=== PATIENT | male | born 1965 | race Caucasian/White ===

== ENCOUNTER 2023-11-23 14:51 | Outpatient (AMB) | payer OTHER, SELFPAY ==
--- NOTE | 2023-11-23 15:05 | MHC.OFFVIS ---
Vital Signs 11/23/23 15:07 Height 5 ft 5 in Weight 189 lb 4 oz BMI 31.5 BP 122/70 Blood Pressure Location Lt brachial Position Sitting Pulse 52 Pulse Source Pulse Oximeter Pulse Oximetry (%) 97 Oxygen Delivery Method Room Air Intake Visit Reasons: ENP-Bilateral arm tremors-CONF Intake Note: Patient presents for bilateral arm tremors. Was taking Bupropion 450mg for five years and doses went down couple a weeks ago to 300 mg and since tremors has gotten better. Having more short term memory loss. Allergies lisinopril Allergy (Severe, Verified 11/23/23 15:31) Difficulty Breathing Medication List - Last Reconciled 11/23/23 by Niharika Fierro, TRAVIS amlodipine 10 mg PO DAILY bupropion HCl XL 300 mg PO QAM hydroxyzine HCl 25 mg PO DAILY lamotrigine 200 mg PO BID losartan 50 mg PO DAILY HPI Comments Details: Right-handed 58-yr-old male presents for new pt evaluation of movement disorder, specifically: tremor. Pt is also concerned about memory issues. PMH includes HTN, depression, sleep difficulties. Pt reports he started having BUE action tremor about 3 yrs ago, which have been gradually increasing. However, the tremor and sleep difficulties are less bothersome since he recently reduced his Bupropion XL from 450mg to 300mg and also switched from q5pm to qam- 2 weeks ago. He states he had started taking the Buporopion at night as he was forgetting his dose in the am and then taking double doses- which resulted him needing ER evaluation- so his switched the Bupropion to q evening. ADL status: Ind IADL status: Overall Ind. does help w/ meds. Fine-motor skills: No issues Micrographia: writing is not as good Vision changes: some blurry vision Hypophonia: Denies Hyposmia: Denies Dysphagia: Denies Drooling: Denies Orthostatic lightheadedness: Can feel spacey at times- even when sitting, more when standing up. States he etas/drinks ok- may need to drink more water. BP is usually higher, but normotensive today. GI: Denies : some urinary frequency- improved after stopping a diuretic Slowness: Denies Freezing episodes: Denies Tremor: BUE action tremor, more so in the right hand. Involuntary movements: He may twitch- pt's states his tells him he twitches at night Dyskinesia: Denies Stiffness: Back and knees can feel stiff. Paresthesias: Denies Gait changes: Very occasionally can feel off-balance if he feels spacey. Sleep difficulty: Sleeps ok w/ hydroxyzine. States had a sleep study before- was told sleep apnea, but did not tolerate CPAP. Parasomnias: May kick in his sleep- not sure if r/t a dream. Memory impairment: Has been having STM difficulties x's a year or maybe more. LTM is good. Can have dififuclty concentrating. Mood: Can be bothered by things. States that he had been depressed for a long time- but was not responsive to tx, even TMS and ECT. Then had psychiatric admission, and finally dx'd w/ Bipolar type I (very hyper or very down)- and was started on bupropion and lamotrigine). Hallucinations: In the past, when working nights, could see something in the road as he was dozing off. Usual exercise: Not much in the winter- works a 9 hr [employer] commute. Musculoskeletal- Has neck tightness/soreness, non-radiating pain, some crepitus on movement. In the past when worse, had vertigo- did PT which helped. History of concussion/head injury? None History of neuroleptic (metoclopramide/antipsychotics) use? Has taken many psychiatric meds- tried all of them . History of psychiatric hospitalizations? Aprpox 5-6 yrs ago. History of occupational chemical exposures? 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 Family history of movement disorders? His sister has tremor for many yrs. Family history of mood disorder or suicide? His dtr has ADD/ADHD. [facility] Medical History (Updated 11/23/23 @ 16:29 by TRAVIS Pettit) Anemia Surgical History (Updated 11/23/23 @ 15:21 by Talya Sadler CMA) History of tonsillectomy H/O vasectomy Family History (Updated 11/23/23 @ 15:25 by Talya Sadler CMA) Father Stroke Mother Stroke Daughter Mood disorder Social History (Updated 11/23/23 @ 15:24 by Talya Sadler CMA) Household Members: Spouse Housing: House Alcohol intake: current Comment: Ocassionally Patient Tobacco Use Status: Never used Tobacco Review of Systems Const All systems reviewed & are unremarkable except as noted in HPI and below Physical Exam Vital Signs: Last Vital Signs Pulse 52 11/23/23 15:07 BP 122/70 11/23/23 15:07 Pulse Ox 97 11/23/23 15:07 Oxygen Delivery Method Room Air 11/23/23 15:07 BMI result Body Mass Index 31.5 Const General: cooperative and no acute distress Resp Effort & Inspection: normal respiratory effort and able to speak in complete sentences Cardio Rate: regular rate Rhythm: regular rhythm Back/Spine/Pelvis Other: Bilateral posterior cervical tightness. Cervical ROM: limited Left Spurling: normal Right Spurling: normal. Neuro Other: General: A&O x's 3 Expression: Intact Voice: Intact Tremor: BUE postural tremor. Shimon eyelids flutter when eyes closed. Wititing is shaky but legible. Finger-Nose- Intact w/ BUE R > L kinetic tremor. Tone: BUE, R > L Dyskinesia: None FFM: Ok Foot taps: Ok Gait: Stands easily, steady gait. Psych: Pleasant affect Deep tendon reflexes (DTR's): Right triceps reflex intensity grade: 2+, Left triceps reflex intensity grade: 2+, Rt Biceps (C5, C6): 2+, Left biceps reflex intensity grade: 2+, Right brachioradialis reflex intensity grade: 2+, Left brachioradialis reflex intensity grade: 2+, Right patellar reflex intensity grade: 3+ and Left patellar reflex intensity grade: 3+ (w/ left 3rd finger extension) Psych Mental Status: mental status grossly normal Speech and movement: Normal speech and movement present Affect: normal affect Attitude: cooperative Thought process: Normal thought process present Assessment & Plan Assessment & Plan (1) Tremor: Code(s): R25.1 - Tremor, unspecified Category: Medical (2) Snoring: Code(s): R06.83 - Snoring Category: Medical (3) Sleep apnea: Code(s): G47.30 - Sleep apnea, unspecified Category: Medical (4) Sleep difficulties: Code(s): G47.9 - Sleep disorder, unspecified Category: Medical (5) Cervicalgia: Code(s): M54.2 - Cervicalgia Category: Medical (6) Hyperreflexia: Code(s): R29.2 - Abnormal reflex Category: Medical (7) Cognitive changes: Comment: STM lapses Code(s): R41.89 - Other symptoms and signs involving cognitive functions and awareness Category: Medical Plan Pt is advised to undergo: XR c-spine C-spine MRI to assess for central etiologies of BUE hyperreflexia, cervicalgia, and tremor. HST to assess status of sleep apnea in setting of cognitive difficulties. Will check labs for common etiologies of cognitive difficulties. Would not start anti-tremor tx or PT at this time, as pt states tremor is improving. Will reconsider if tremor worsens. Pt seen in collaboration w/ Dr Ramos. f/u upon review of above, an din-clinic w/ Dr Ramos in 2 months or sooner prn. Orders: Orders RT home sleep study 11/23/23 G47.30 - Sleep apnea, unspecified, G47.9 - Sleep disorder, unspecified, R06.83 - Snoring MR cervical spine wo con 11/23/23 M54.2 - Cervicalgia, R25.1 - Tremor, unspecified, R29.2 - Abnormal reflex Comprehensive Met. Panel 11/23/23 D64.9 - Anemia, unspecified, I10 - Essential (primary) hypertension, R25.1 - Tremor, unspecified, R41.89 - Other symptoms and signs involving cognitive functions and awareness, R79.89 - Other specified abnormal findings of blood chemistry Creatine Kinase Total 11/23/23 D64.9 - Anemia, unspecified, I10 - Essential (primary) hypertension, R25.1 - Tremor, unspecified, R41.89 - Other symptoms and signs involving cognitive functions and awareness, R79.89 - Other specified abnormal findings of blood chemistry IRON PROFILE 11/23/23 D64.9 - Anemia, unspecified, I10 - Essential (primary) hypertension, R25.1 - Tremor, unspecified, R41.89 - Other symptoms and signs involving cognitive functions and awareness, R79.89 - Other specified abnormal findings of blood chemistry TSH reflex Free T4 11/23/23 D64.9 - Anemia, unspecified, I10 - Essential (primary) hypertension, R25.1 - Tremor, unspecified, R41.89 - Other symptoms and signs involving cognitive functions and awareness, R79.89 - Other specified abnormal findings of blood chemistry HIV Ab/Ag 11/23/23 D64.9 - Anemia, unspecified, I10 - Essential (primary) hypertension, R25.1 - Tremor, unspecified, R41.89 - Other symptoms and signs involving cognitive functions and awareness, R79.89 - Other specified abnormal findings of blood chemistry MEL Reflex Titer and Pattern 11/23/23 D64.9 - Anemia, unspecified, I10 - Essential (primary) hypertension, R25.1 - Tremor, unspecified, R41.89 - Other symptoms and signs involving cognitive functions and awareness, R79.89 - Other specified abnormal findings of blood chemistry Rheumatoid Factor 11/23/23 D64.9 - Anemia, unspecified, I10 - Essential (primary) hypertension, R25.1 - Tremor, unspecified, R41.89 - Other symptoms and signs involving cognitive functions and awareness, R79.89 - Other specified abnormal findings of blood chemistry XR cervical spine w flex/ext 11/23/23 M54.2 - Cervicalgia, R25.1 - Tremor, unspecified, R29.2 - Abnormal reflex Complete Blood Count Auto Diff 11/23/23 D64.9 - Anemia, unspecified, I10 - Essential (primary) hypertension, R25.1 - Tremor, unspecified, R41.89 - Other symptoms and signs involving cognitive functions and awareness, R79.89 - Other specified abnormal findings of blood chemistry Erythrocyte Sedimentation Rate 11/23/23 D64.9 - Anemia, unspecified, I10 - Essential (primary) hypertension, R25.1 - Tremor, unspecified, R41.89 - Other symptoms and signs involving cognitive functions and awareness, R79.89 - Other specified abnormal findings of blood chemistry Vitamin B12 and Folate 11/23/23 D64.9 - Anemia, unspecified, I10 - Essential (primary) hypertension, R25.1 - Tremor, unspecified, R41.89 - Other symptoms and signs involving cognitive functions and awareness, R79.89 - Other specified abnormal findings of blood chemistry Methylmalonic Acid 11/23/23 D64.9 - Anemia, unspecified, I10 - Essential (primary) hypertension, R25.1 - Tremor, unspecified, R41.89 - Other symptoms and signs involving cognitive functions and awareness, R79.89 - Other specified abnormal findings of blood chemistry Homocysteine 05/09/24 D64.9 - Anemia, unspecified, I10 - Essential (primary) hypertension, R25.1 - Tremor, unspecified, R41.89 - Other symptoms and signs involving cognitive functions and awareness, R79.89 - Other specified abnormal findings of blood chemistry Ferritin 11/23/23 D64.9 - Anemia, unspecified, I10 - Essential (primary) hypertension, R25.1 - Tremor, unspecified, R41.89 - Other symptoms and signs involving cognitive functions and awareness, R79.89 - Other specified abnormal findings of blood chemistry T4 Thyroxine 11/23/23 D64.9 - Anemia, unspecified, I10 - Essential (primary) hypertension, R25.1 - Tremor, unspecified, R41.89 - Other symptoms and signs involving cognitive functions and awareness, R79.89 - Other specified abnormal findings of blood chemistry Syphilis Screen 11/23/23 D64.9 - Anemia, unspecified, I10 - Essential (primary) hypertension, R25.1 - Tremor, unspecified, R41.89 - Other symptoms and signs involving cognitive functions and awareness, R79.89 - Other specified abnormal findings of blood chemistry Coding Level of Care Code New Pt Level 4 (56024) Diagnoses Tremor R25.1 Snoring R06.83 Sleep apnea G47.30 Sleep difficulties G47.9 Cervicalgia M54.2 Hyperreflexia R29.2 Cognitive changes R41.89
[2023-11-23 15:07] VITALS: BP 122/70; PULSE 52; O2SAT 97; BMI 31.5
== END 2023-11-23 16:27 | disposition home or self-care (01) ==
PROVIDERS: PCP Internal Medicine; Visit Provider Nurse Practitioner Family
DX: R25.1 Tremor, unspecified (principal); R06.83 Snoring; G47.30 Sleep apnea, unspecified; G47.9 Sleep disorder, unspecified; M54.2 Cervicalgia; R29.2 Abnormal reflex; R41.89 Other symptoms and signs involving cognitive functions and awareness
CPT/HCPCS: 99204

== ENCOUNTER → 2023-11-23 14:51 | Outpatient (BNVA) | payer OTHER, SELFPAY | PROVIDERS: PCP Internal Medicine; Visit Provider Nurse Practitioner Family ==

== ENCOUNTER → 2024-01-08 15:48 | Outpatient (REF) | payer OTHER, SELFPAY ==
--- NOTE | ~2024-01-08 | XR_ITS ---
EXAMINATION: XR CERVICAL SPINE CLINICAL INFORMATION: Cervicalgia. COMPARISON: None available. TECHNIQUE: 5 views of the cervical spine, inclusive of flexion and extension views, were obtained. FINDINGS: There is mild bony demineralization. Vertebral body heights are normal. At C3-C4, there is a 2 mm anterolisthesis. At C4-C5 through C6-C7, there is marked disc space narrowing. No acute fracture or spondylolisthesis is seen. There is no instability with flexion or extension. The posterior elements are intact. There is multi-level endplate arthropathy. The dens is intact. No prevertebral soft tissue swelling is seen. XR/XR cervical spine w flex/ext IMPRESSION: 1. There is multi-level cervical degenerative disc disease and endplate arthropathy. Degenerative disc disease is most pronounced at C4-C5 through C6-C7, where it is marked. 2. No instability seen with flexion or extension.
== END ==
LOC: HO.SL 15:48
PROVIDERS: PCP Internal Medicine; Visit Provider Nurse Practitioner Family
DX: M54.2 Cervicalgia (principal); R29.2 Abnormal reflex; R25.1 Tremor, unspecified
CPT/HCPCS: 72052

== ENCOUNTER 2024-02-14 19:45 | Outpatient (REF) | payer OTHER, SELFPAY ==
--- NOTE | ~2024-02-14 | MR_ITS ---
MR CERVICAL SPINE WITHOUT IV CONTRAST CLINICAL INFORMATION: Cervicalgia. COMPARISON: Cervical spine radiographs January 08, 2024. TECHNIQUE: Multiplanar multisequence MR imaging of the cervical spine obtained without IV contrast. FINDINGS: Partially minimal rightward convex sclerotic curvature of the thoracic spine. The vertebral body heights are maintained. There is moderate disc volume loss at C4-C5, C5-C6, and C6-C7. There is no bone marrow edema. There are no acute fractures. The craniocervical junction is unremarkable. There are Modic type II endplate signal changes at C3-C4, C5-C6, and C6-C7. The partially imaged intracranial compartment is unremarkable. Cervical arterial flow voids are maintained. There are no significant extraspinal soft tissue findings. There are no cervical cord signal changes when accounting for artifact. C2-C3: Uncovertebral joint spurring and advanced facet arthropathy results in mild left and moderate right foraminal stenosis. No central canal stenosis. C3-C4: A broad-based central disc protrusion and ligamentum flavum thickening results in moderate central canal stenosis and flattening of the cord. Advanced uncovertebral joint hypertrophy and hypertrophic facet arthropathy result in moderate to severe bilateral foraminal stenosis. C4-C5: Disc osteophyte and ligamentum flavum thickening result in moderate central canal stenosis and flattening of the cord. Uncovertebral joint spurring and facet arthropathy result in moderate right-sided foraminal stenosis. C5-C6: Disc osteophyte and ligamentum flavum thickening result in moderate to severe central canal stenosis and flattening of the cord. Advanced uncovertebral joint hypertrophy and hypertrophic facet arthropathy result in severe right and moderate to severe left foraminal stenosis. C6-C7: Disc osteophyte and ligamentum flavum thickening result in moderate central canal stenosis and flattening of the cord. Advanced uncovertebral joint hypertrophy and hypertrophic facet arthropathy result in severe left and moderate right foraminal stenosis. C7-T1: Posterior disc contour is normal. Uncovertebral joint spurring and advanced facet arthropathy results in mild to moderate right-sided foraminal stenosis. MR/MR cervical spine wo con IMPRESSION: Advanced multilevel cervical spondylosis with multifactorial degenerative changes resulting in moderate to severe central canal stenosis at C5-C6, moderate central canal stenosis at C3-C4, C4-C5, and C6-C7 with mass effect on the cervical spinal cord at all these levels, greatest at C5-C6. Advanced spondylitic changes also result in varying degrees of moderate to severe foraminal stenosis throughout the cervical spine as discussed above. No definite signal changes within the cervical spinal cord when accounting for artifact. Electronically signed by: Ihsan Fitzpatrick MD 03/14/2024 07:40 AM EDT
== END 2024-02-14 19:46 | disposition home or self-care (01) ==
LOC: HO.MRI 19:45
PROVIDERS: PCP Internal Medicine; Visit Provider Nurse Practitioner Family
DX: M54.2 Cervicalgia (principal); R29.2 Abnormal reflex; R25.1 Tremor, unspecified
CPT/HCPCS: 72141

== ENCOUNTER 2024-05-10 09:16 | Outpatient (AMB) | payer OTHER, SELFPAY ==
--- NOTE | 2024-05-10 09:20 | HO.SPINEOV ---
Intake Visit Reasons: bilateral arm tremors Intake Note: Mr. Gonzalez is here today c/o neck pain that radiates to the head. Sales And Marketing Representative Required: No Allergies lisinopril Allergy (Severe, Verified 11/23/23 15:31) Difficulty Breathing Assessment & Plan Assessment & Plan (1) Cervicalgia: Code(s): M54.2 - Cervicalgia Category: Medical Plan Dear Niharika, Thank you for referring Mr Gonzalez to our office today. He is a 58-year-old gentleman who presents today for evaluation of his cervical spine. Has had on and off neck pain for years. About a year ago though it has gotten significantly worse and slowly escalated to where it has been bothering him a few times a week requiring him to take Motrin. He has no pain, tingling or numbness radiating down his arms or legs. He does have dizziness from time to time that does seem to come on with the neck pain and it makes it difficult focusing but no overt myelopathic symptoms. He did do physical therapy few times and it does seem to help when he is doing it but then when it stops it goes away and he has right back to where he started. He is here today to follow up on his MRI showing degenerative disc disease and cervical stenosis. PMH: He has history of hypertension but other than that he is healthy with no major medical problems. He does have a history of bipolar and depression. Social hx: He does not smoke, drink use any recreational drugs, he works inspecting plane engine parts Medications: Lamotrigine, Wellbutrin, amlodipine, hydroxyzine Allergies: None Physical exam: He is awake alert oriented no acute distress, is able to stand up and walk on his own with no gait imbalance, strength is normal in the upper and lower extremities. He does appear to have a tremor in his hands that was aggravated with manual motor testing. I did not notice it a rest. He does have diffuse hyperreflexia with clonus, downgoing toes bilaterally. Imaging review: He has a cervical MRI showing degenerative disc disease at C4-5, C5-6 and C6-7. There is at worst moderate stenosis at C5-6. There is foraminal narrowing at multiple levels. He has facet arthropathy more on the left C3-4. No cord signal change seen. Impression: 58 year old gentleman presents for evaluation of posterior neck pain, incidentally noted hyperreflexia. He does have cervical stenosis, Dr. Matias and I both reviewed the imaging and he does not feel it is enough to justify surgery or that it would explain hyperreflexia. The patient currently has no myelopathic symptoms so this is not an indication for surgery. He thinks more likely it is due to the patient's antidepressants as they are known to cause a side effect of hyperreflexia. With regard to his neck pain, he does have multilevel degenerative disc disease. However, to treat that would require anterior cervical fusion at multiple levels and I think that would be an aggressive step to take given that he has only having to take Motrin a few times a week for flare-ups. Dr. Matias agrees that we should try to deal with this conservatively if possible. I will send him to Dr. miles to be evaluated and see if he thinks her anything he can do in terms of injections etc.. The patient will follow up with us in 3 months. Thank you for allowing us to care for your patient. The total time spent with this visit with this patient was 45 minutes reviewing history, physical exam, service imaging review, and implementation of treatment plan or further diagnostic testing Jose Elias Matias MD,PhD [facility] Orders: Referrals Physiatry Referral M54.2 - Cervicalgia Coding Level of Care Code New Pt Level 4 (64606) Diagnoses Cervicalgia M54.2
== END 2024-05-10 10:29 | disposition home or self-care (01) ==
PROVIDERS: PCP Internal Medicine; Referring Provider Nurse Practitioner Family; Visit Provider Physician Assistant
DX: M54.2 Cervicalgia (principal)
CPT/HCPCS: 99204

== ENCOUNTER → 2024-05-10 09:16 | Outpatient (BNVA) | payer OTHER, SELFPAY | PROVIDERS: PCP Internal Medicine; Visit Provider Physician Assistant ==